=== PATIENT | male | born 1995 | race Hispanic/Latino ===

== ENCOUNTER 2020-11-18 09:03 | Emergency (ER) | payer SELFPAY ==
[~2020-11-18] VITALS: Ht 182.9 cm; Wt 77.0 kg
[2020-11-18] MEDS ORDERED: CEPHALEXIN500 MG PO ×2 (09:38→09:55)
[2020-11-18] MEDS ORDERED: GENTAMICIN SULF5 ML OD ×2 (09:38→09:55)
[2020-11-18] MEDS ORDERED: NO HOME MEDS (09:49)
[2020-11-18 09:59] VITALS: BP 131/89
== END 2020-11-18 09:59 | disposition home or self-care (01) | DRG 125 ==
LOC: ED 09:03
DX: H00.011 Hordeolum externum right upper eyelid (principal); H01.00A Unspecified blepharitis right eye, upper and lower eyelids